=== PATIENT | male | born 1955 | race African-American/Black ===

== ENCOUNTER 2025-02-21 13:43 | Emergency (ER) | payer BC, MEDICAID ==
[~2025-02-21] VITALS: Ht 175.3 cm; Wt 118.0 kg
[2025-02-21 14:17] VITALS: O2SAT 98
[2025-02-21] MEDS ORDERED: AMOX1TAB16 MT (16:28)
[2025-02-21 16:43] VITALS: TEMP 37; O2SAT 97
[2025-02-21 16:44] VITALS: PULSE 89
[2025-02-21] MEDS: KETOROLAC 15MG/ML VIAL IM ONE (16:44)
[2025-02-21 16:45] VITALS: BP 124/61; RESP 18
[2025-02-21] MEDS: ACETAMINOPHEN 325MG TABLET PO ONE (16:45)
[2025-02-21] MEDS: LIDOCAINE 5% PATCH TOP SCH (16:45)
== END 2025-02-21 17:22 | disposition home or self-care (01) ==
LOC: ER 13:43
DX: D17.1 Benign lipomatous neoplasm of skin and subcutaneous tissue of trunk (principal); I10 Essential (primary) hypertension; J44.9 Chronic obstructive pulmonary disease, unspecified; M19.90 Unspecified osteoarthritis, unspecified site
CPT/HCPCS: 99283; 96372; J1885